=== PATIENT | male | born 2000 | race Caucasian/White ===

== ENCOUNTER 2021-07-18 05:15 | Inpatient (IN) | payer BC ==
[~2021-07-18] VITALS: Ht 188 cm; Wt 97.5 kg
[2021-07-18] MEDS ORDERED: loperamide 2mg capsule PO PRN (14:40)
[2021-07-18] MEDS ORDERED: haloperidol 5mg tablet PO ONE (14:40)
[2021-07-18] MEDS ORDERED: diphenhydrAMINE 25mg capsule PO ONE (14:40)
[2021-07-18] MEDS ORDERED: magnesium hydroxide 30ml (MOM) UD suspension PO PRN (14:40)
[2021-07-18] MEDS ORDERED: acetaminophen 325mg tablet PO PRN ×2 (14:40)
[2021-07-18] MEDS ORDERED: LORazepam 1 MG tablet PO ONE (14:40)
[2021-07-18] MEDS ORDERED: mag hydrox/Alum hydrox/simeth 30ml oral suspension PO PRN (14:40)
[2021-07-18 14:45] VITALS: BP 151/99
--- NOTE | 2021-07-18 14:45 | NUR ---
Nursing Admission Note: 5150 reads "You are disoriented with nonsensical speech. You have been having bizarre and eratic behavior. You attempted to elope from the ER and get into helicopter specialist car." Patient arrived by ambulance on 07/18/21 at 1445 from [facility]. Patient arrived and restrained x4 on a guerney. Patient immediately received Haldol, Benadryl & Ativan po by Davey Hammond RN. Patient was unstrapped and removed from his restraints while in the Observation Room. Security Staff x2 was on stand by near to the Observation Room. Patient was then +escorted to the shower where a 2 RN skin assessment was done which was negative. MRSA swab of nares was obtained. Report received from [facility] reported patient took "[place] which developed into Psychosis. Patient received Zyprexa at 0530. Patient hallucinated on the way up here that his mom was in the ambulance. Patient appeared agitated, then trusted us, then accused us of kidnapping him. Patient is A & O x3 & x4 during the ride up here. When we were picking him up, he was trying to leave, running around the room and violent with security. That is when the Hospital suggested restraints. Patient is currently attending [facility]. Admitted to auditory & visual hallucinations. Thought Process is disorganized and grossly impaired. Thought Content was delusions. Poor insight secondary to cannabis intoxication. Patient received an additional dose of Zyprexa 5mg po and also Ativan 1mg prior to transport to [facility]."
--- NOTE | 2021-07-18 16:41 | NUR ---
Parent's phone numbers: Vida - mom: Isaías - father:
[2021-07-18] MEDS ORDERED: NO HOME MEDS (16:54)
[2021-07-18 19:52] VITALS: BP 113/74
[2021-07-18] MEDS ORDERED: olanzapine 10mg tablet PO ONE (21:00)
--- NOTE | 2021-07-19 00:06 | NUR ---
NURSING PROGRESS NOTE Legal Status: 5150 Reason For Admit: 5150 reads "You are disoriented with nonsensical speech. You have been having bizarre and erratic behavior. You attempted to elope from the ER and get into messenger copy car." What Happened This Shift: Zabrina Marquez consulted on medications for tonight, Zyprexa 10 mg ordered for HS. PT wakes up around 194, and asks where he is. Staff orients pt and explains more about the unit. Rn goes over Zyprexa with pt. He takes the Zyprexa without issue. Pt sits in the hallway and plays the guitar. He is friendly and interacts well with his peers, which he is observed sitting and chatting, playing games with a small group. He denies SI/HI/AH/VH. Staff observe pt having linear conversation, but saying some odd things. Discharge: Patient in need of crisis interruption and stabilization with medication management and monitoring in a safe and therapeutic environment until stable.
[2021-07-19 07:05] LABS: HEMOGLOBIN A1C 5.2 % (4.5-6.2)
[2021-07-19 08:00] VITALS: BP 146/91
[2021-07-19 08:10] LABS: CHOL/HDL RATIO 1.6 (0.00-4.99); CHOLESTEROL 107 MG/DL (0-200); HDL CHOLESTEROL 65 MG/DL (35-60); LDL CHOLESTEROL 37 MG/DL (50-100); TRIGLYCERIDES 57 MG/DL (20-135)
--- NOTE | 2021-07-19 08:52 | NUR ---
Pt attended group today. We talked about Self Nurturing about how to curate spaces of nurture/self-care for themselves. We then did Vision board visualizing safe/nurture places and words. Pts demeanor was calm and pleasant for the most part. He sat next to another peer who he seemed to enjoy joking around with. He engaged in the activity though he and his neighbor decided to do their vision page together which then took them on a tangent to what was asked of them. They were supposed to construct a page with a theme of safe/nurturing spaces for themselves. They seemed to enjoy working together so this Human Resources Benefits Assistant let them have their page together. The page turned out to be more of a funny joking around page then what was asked. Pt. was alert and oriented X 4. His thought content and thought process was WNL. Maya Nicholson LCSW
[2021-07-19] MEDS ORDERED: LORazepam 1 MG tablet PO ONE (14:00)
--- NOTE | 2021-07-19 16:55 | NUR ---
Nursing Progress Note Legal hold: 5150 Report received from RN with use of SBAR Why are they here: 5150 reads "You are disoriented with nonsensical speech. You have been having bizarre and erratic behavior. You attempted to elope from the ER and get into copper miner car." Assessment What has happened this shift: Received Pt in bed resting w/o distress at shift change. Pt cooperative with vitals and ate breakfast and lunch well. Pt did not have scheduled meds this shift, but was given Ativan after pt observed pushing on doors and not responding to redirection. Pt wants to leave unit and go home to family. He denies all MH sxs and is not accepting the idea that he will be here for at least 72hrs. Pt reports that staff is not understanding the situation or hx that got him here. Talks about theories a lot about illnesses. Pt states Im being groomed but would not elaborate. Pt increasingly restless about wanting to leave in afternoon. S/I, H/I: Denies A/VH: Denies Sleep: None ADL's: Independent Group attendance: No Were meds taken: NA on this shift Any med S/E: None Mental Status Exam Appearance: Casual in sweats Eye contact: Good Behavior: Cooperative, restless after hearing Speech: WNL, Coherent Mood: Anxious Affect: Animated Thought process: Disorganized and grandiose at times Thought Content: Wanting to leave and go to family Cognition: A&O X3 Insight: Fair Judgment: Fair Interventions PRN's used: Ativan Therapeutic interventions: Maintained a safe and supportive environment, provided clear and simple communication, provided active listening and positive encouragement, and maintained Q 15min safety checks. Restraints/seclusion/emergency medication: N/A Justification of Continued Inpatient Treatment: Per Dr. Devine, pt. continues to require as safe and supportive environment.
[2021-07-19 20:00] VITALS: BP 140/96
[2021-07-19] MEDS ORDERED: traZODone 50mg tablet PO ONE (23:15)
[2021-07-20] MEDS: LORazepam 1 MG tablet PO PRN ×2 (01:15→05:25)
--- NOTE | 2021-07-20 01:16 | NUR ---
Sleeping note: Pt up pacing the unit, pt states the trazadone made his stomach ache. Pt states he has racing thoughts, agreed to take 1MG ativan.
--- NOTE | 2021-07-20 01:35 | NUR ---
Nursing Progress Note Guicho Legal hold: 5150 Report received from RN with use of SBAR Why are they here: 5150 reads "You are disoriented with nonsensical speech. You have been having bizarre and erratic behavior. You attempted to elope from the ER and get into copy coordinator car." Assessment What has happened this shift: Received watching TV in the rec room with peers. Pt calm and cooperative and friendly with this RN. Pt states he is doing awesome and is bored being here. He denies all MH symptoms. Pt did not want to go into detail about how he got here but states he was going to college at [employer]. He had a visit from his dad and brother who brought him some books to read. Pt walked down the hallway with this RN and whispered hey can you get me out of here. Told the pt it was up to the Dr When he would be able to leave. Pt observed in the rec room playing the guitar before bedtime. Pt up at 2300, restless, provider ordered 100MG of trazadone, however pt concerned about the medication and only took 50MG. Given pt hot tea. Pt had initially insisted on reading and falling asleep naturally. S/I, H/I: Denies A/VH: Denies Sleep: None ADL's: Independent Group attendance: No Were meds taken: NA on this shift Any med S/E: None Mental Status Exam Appearance: Casual in sweats Eye contact: Good Behavior: Cooperative Speech: WNL, Coherent Mood: Anxious, manic in the evening Affect: Animated Thought process: Disorganized and grandiose at times Thought Content: Wanting to leave and go to family Cognition: A&O X3 Insight: Fair Judgment: Fair Interventions PRN's used: trazadone, ativan Therapeutic interventions: Maintained a safe and supportive environment, provided clear and simple communication, provided active listening and positive encouragement, and maintained Q 15min safety checks. Restraints/seclusion/emergency medication: N/A Justification of Continued Inpatient Treatment: Per Dr. Devine, pt. continues to require as safe and supportive environment.
[2021-07-20 08:00] VITALS: BP 132/90
--- NOTE | 2021-07-20 12:02 | NUR ---
Assessment Presenting Issues: Pt's admitted from [facility] following 5150 due to GD concerns as a result of his erratic bxs, disorganized thoughts. Pt's 5150 is set to tomorrow @ 2:45PM. Pt expressed desire to d/c and rt home to [place] with family. Interventions: Clinician met w/pt and engaged him in completing a psychosocial assessment, pt signed TERI & #9. Pt presented for assessment w/calm & cooperative mood, and a nervous/anxious affect (uses jokes to ground self). Thought process appears to be linear & coherent, while contents was slightly grandiose (pt exhibited elevated intellectual interest in his sxs), denies SI/HI, reports AH (voices inside my head), denies VH/TH, pt also reports experiences of thoughts that "I had to give myself a reality check a few times." Sleep had been sporadic, bxs-cooperative (declines medication), insight-age appropriate, judgement-guarded. Pt reports anxiety can be "pretty bad, especially when people say that I'm here because of drugs." Pt also hinted at some childhood exposure to multiple ACEs, prior crisis services at [facility] where chemical restraint may have been administered. Collateral- Clinician met w/pt & his father for the purposes of gathering MH history for pt & family. Per session, depression runs on both paternal & maternal side of the family. During session pt's father appears to be choosing his words quite cautiously. 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 Clinician provided psychoed re mood disorder and treatment options, pt is anti-medication at this time but shows some interest in psychotherapy, pt & pt's father agreed to f/u with pt's PMD in [place] following d/c from [facility] and will look into psychotherapy services in [place]. Pt plans to take time off of school and do therapy. At time of d/c pt's father will pick him up. DCP was endorsed to attending physician cataloging assistant. Plan: Pt to d/c tomorrow to return to [place] with his father & f/u with PMD & psychotherapy in [place]. Danni Meredith TG Addendum: 07/20/21 at 1311 by Danni KLEIN Amended: Links added.
--- NOTE | 2021-07-20 16:25 | NUR ---
Nursing Progress Note: Guicho Legal hold: 5150 Report received from ISRA Hunt with use of SBAR Why they are here: 5150 reads "You are disoriented with nonsensical speech. You have been having bizarre and erratic behavior. You attempted to elope from the ER and get into endoscope technician car." Assessment What has happened this shift: Patient is awake in his room at the start of the shift. Walks the unit and socializes with select peers. Requests PRN Ativan prior to breakfast but the patient had already taken Ativan at 05:30. Patient does not appear anxious and does not appear upset about having to wait. Patient does not request Ativan again and appears calm. Cooperative with 1:1 assessment. Denies any mental health symptoms. No routine medications are ordered for this shift. Plays the [employer] for a short time in the late morning. Visits with family during visitation. S/I, H/I: Denies A/VH: Denies Sleep: None noted this shift. ADL's: Independent Group attendance: Yes Were meds taken: No medication scheduled for this shift Any med S/E: None observed or reported Mental Status Exam Appearance: Tall, thin, young appearing make, neat, clean dressed in casual personal attire. Eye contact: Good Behavior: Cooperative, social Speech: Clear, normal rate/ volume Mood: Great. Affect: Congruent, full range Thought process: Linear, grandiose at times Thought Content: Discharge, meeting needs Cognition: A&O X3 to self, time and place Insight: Poor Judgment: Fair Interventions PRN's used: None Therapeutic interventions: Maintained a safe and supportive environment, provided clear and simple communication, and provided active listening and positive encouragement, and maintained Q 15min safety checks. Restraints/seclusion/emergency medication: N/A Justification of Continued Inpatient Treatment: Per Dr. Devine, pt. continues to require as safe and supportive environment.
[2021-07-20 19:38] VITALS: BP 148/82
[2021-07-20] MEDS ORDERED: traZODone 50mg tablet PO PRN (21:00)
--- NOTE | 2021-07-21 01:23 | NUR ---
Nursing Progress Note: Guicho Legal hold: 5150 Report received from Ladonna DHALIWAL with use of SBAR Why they are here: 5150 reads "You are disoriented with nonsensical speech. You have been having bizarre and erratic behavior. You attempted to elope from the ER and get into photocopying machine operator car." Assessment What has happened this shift: Patient is awake in his room talking with his roommate. Pt states he is much better than yesterday and denies MH symptoms. Pt excited to be leaving tomorrow back with his family. Pt up for snacks, no scheduled medications this evening. S/I, H/I: Denies A/VH: Denies Sleep: ADL's: Independent Group attendance: Yes Were meds taken: No medication scheduled for this shift Any med S/E: None observed or reported Mental Status Exam Appearance: Tall, thin, young appearing make, neat, clean dressed in casual personal attire. Eye contact: Good Behavior: Cooperative, social Speech: Clear, normal rate/ volume Mood: Great. Affect: Congruent, full range Thought process: Linear, grandiose at times Thought Content: Discharge, meeting needs Cognition: A&O X3 to self, time and place Insight: Poor Judgment: Fair Interventions PRN's used: None Therapeutic interventions: Maintained a safe and supportive environment, provided clear and simple communication, and provided active listening and positive encouragement, and maintained Q 15min safety checks. Restraints/seclusion/emergency medication: N/A Justification of Continued Inpatient Treatment: Per Dr. Devine, pt. continues to require as safe and supportive environment.
[2021-07-21 07:14] VITALS: BP 150/84
--- NOTE | 2021-07-21 10:37 | NUR ---
Discharge Note: Follow up plan reviewed with the patient who is agreeable to discharge home. No s/sx acute distress. Escorted off the unit by staff with all of his belongings at 10:30 and is picked up by family. Discharged with the following instructions. Follow-Up: Patient has been scheduled/referred to the following providers for post-hospital discharge and aftercare treatment. Primary Care Provider: Pt & family will contact PMD to schedule post hospital follow-up within 10 days of discharge Discharge Address: Home [address] [place] [address] [place] [address] Transportation: Pt's father will pick pt up at discharge Patient given community crisis services information and National suicide hotline handout. Resources for education regarding mental illness: [facility] [address] [place] [address] For urgent mental health crisis needs please contact: [facility] Crisis: [phone] (24 hrs). Walk in [facility] (8am-5pm) [address] [facility]: [phone] [facility]: [facility]: [phone] [facility]: [phone] [facility]: [phone] [facility] Crisis Stabilization Unit (CSU)
== END 2021-07-21 10:30 | disposition home or self-care (01) | DRG 885 ==
LOC: ADULT MH 14:34
PROVIDERS: ADMIT Psychiatry & Neurology Psychiatry; ATTEND Psychiatry & Neurology Psychiatry
DX: F31.9 Bipolar disorder, unspecified (principal); F19.10 Other psychoactive substance abuse, uncomplicated; F17.210 Nicotine dependence, cigarettes, uncomplicated; F12.90 Cannabis use, unspecified, uncomplicated; Z78.1 Physical restraint status; Z71.6 Tobacco abuse counseling; Z88.8 Allergy status to other drugs, medicaments and biological substances
CPT/HCPCS: 36415; 80061; 83036; 87081; Q0163